=== PATIENT | male | born 1990 | race African-American/Black ===

== ENCOUNTER 2019-07-27 19:57 | Emergency (ER) | payer OTHER ==
[~2019-07-27] VITALS: Ht 185.4 cm; Wt 88.5 kg
[~2019-07-27 19:57] MED LIST: IBUPROFEN 600600 M1 PO; IBUPROFEN 800800 M1 PO; NOHOMEMEDICATIONS; NORCO 5-325 TA1 EACH PO; TOBREX5 ML OPHTHALMIC; ULTRAM 50MG TAB50 MG PO
[2019-07-27 22:22] VITALS: BP 131/89
== END 2019-07-27 22:26 | disposition home or self-care (01) ==
LOC: ER 19:57
DX: S43.004A Unspecified dislocation of right shoulder joint, initial encounter (principal); X58.XXXA Exposure to other specified factors, initial encounter; Y93.89 Activity, other specified; Y92.89 Other specified places as the place of occurrence of the external cause; Y99.8 Other external cause status

== ENCOUNTER 2021-01-20 22:06 | Emergency (ER) | payer OTHER ==
[~2021-01-20] VITALS: Ht 185.4 cm; Wt 83.9 kg
[2021-01-21 00:11] VITALS: BP 131/74
== END 2021-01-21 00:12 | disposition home or self-care (01) ==
LOC: ER 22:06
DX: S43.014A Anterior dislocation of right humerus, initial encounter (principal); X50.1XXA Overexertion from prolonged static or awkward postures, initial encounter; Y93.67 Activity, basketball; Y92.310 Basketball court as the place of occurrence of the external cause; Y99.8 Other external cause status